=== PATIENT | female | born 1980 | race Two or more races ===

== ENCOUNTER 2018-12-13 16:53 | Emergency (ER) | payer MEDICAID, OTHER ==
[~2018-12-13] VITALS: Ht 152.4 cm; Wt 4.1 kg
[2018-12-13 18:25] VITALS: BP 109/46
[2018-12-13] MEDS ORDERED: methylPREDNISolone SOD SUCC 125 MG/2 ML VL IM ONE (20:30)
[2018-12-13] MEDS ORDERED: diphenhdrAMINE HCL 50 MG/1 ML VL IM ONE (20:30)
== END 2018-12-13 21:17 | disposition home or self-care (01) ==
LOC: ER 17:14
DX: T63.441A Toxic effect of venom of bees, accidental (unintentional), initial encounter (principal); M79.89 Other specified soft tissue disorders; L29.9 Pruritus, unspecified; Y92.832 Beach as the place of occurrence of the external cause
CPT/HCPCS: 96372; 99283; J1200; J2930